=== PATIENT | female | born 1995 | race Caucasian/White ===

== ENCOUNTER 2017-02-04 11:37 | Emergency (ER) | payer BC ==
[2017-02-04 11:44] VITALS: O2SAT 98
[2017-02-04] MEDS ORDERED: NS 1,000 ML IV ONE (11:59)
--- NOTE | 2017-02-04 11:59 | EDPHY ---
H & P Time Seen by Provider: 02/04/17 11:47 HPI/ROS: CHIEF COMPLAINT: UTI symptoms HISTORY OF PRESENT ILLNESS: This is a 21-year-old female presenting to the emergency department complaining of painful urination with san[place] and C x2 days. Patient said she had an increase in lower abdominal pain with painful urination onset this morning, denies any nausea vomiting, or fever. Patient also reports that this is finals week for her decreasing water intake feels dehydrated and fatigue REVIEW OF SYSTEMS: Constitutional: No fever, no chills. Fatigue, decrease in fluid intake Eyes: No discharge. ENT: No sore throat. Cardiovascular: No chest pain, no palpitations. Respiratory: No cough, no shortness of breath. Gastrointestinal: Lower abdominal pain, no vomiting, no nausea Genitourinary: Painful urination, with frequency and urgency Musculoskeletal: No back pain. Skin: No rashes. Neurological: No headache. Past Medical/Surgical History: History of Crohn's disease Smoking Status: Never smoked Physical Exam: General Appearance: Alert and no distress. Eyes: Pupils equal and round no injection. Respiratory: Chest is nontender, lungs are clear to auscultation. Cardiac: regular rate and rhythm Gastrointestinal: Abdomen is soft, nondistended, suprapubic tenderness on palpation, no masses, bowel sounds normal. Musculoskeletal: Neck is supple and nontender. No CVA tenderness on palpation Extremities: full range of motion and are nontender. Skin: No rashes or lesions. Constitutional: Initial Vital Signs Temperature (C) 36.0 C 02/04/17 11:39 Heart Rate 61 02/04/17 11:39 Respiratory Rate 16 02/04/17 11:39 Blood Pressure 122/84 H 02/04/17 11:39 O2 Sat (%) 98 02/04/17 11:39 O2 Delivery Mode Room Air Allergies/Adverse Reactions: No Known Allergies Allergy (Verified 02/04/17 11:44) Home Medications: Medication Instructions Recorded Ortho Tri-Cyclen Lo Tablet 02/04/17 Sulfamethox/Tmp 800/160 mg 1 tab PO BID #14 tab 02/04/17 [Bactrim Ds] Medical Decision Making ED Course/Re-evaluation: Discussed the plan of care: IV fluids for dehydration, UA, urine culture, CBC, BMP Discussed urine results with patient, culture will be sent, placed on antibiotics. Discharge home---> stable, discussed discharge instructions with patient Differential Diagnosis: Other differential diagnosis considered but not limited to pyelonephritis, renal stone, and urosepsis - Data Points Laboratory Results: Laboratory Results 02/04/17 12:15 02/04/17 12:15 02/04/17 02/04/17 02/04/17 12:15 12:15 11:45 WBC 13.18 10^3/uL H 10^3/uL (3.80-9.50) RBC 4.26 10^6/uL 10^6/uL (4.18-5.33) Hgb 12.9 g/dL g/dL (12.6-16.3) Hct 38.3 % % (38.0-47.0) MCV 89.9 fL fL (81.5-99.8) MCH 30.3 pg pg (27.9-34.1) MCHC 33.7 g/dL g/dL (32.4-36.7) RDW 12.8 % % (11.5-15.2) Plt Count 248 10^3/uL 10^3/uL (150-400) Sodium 139 mEq/L mEq/L (134-144) Potassium 3.7 mEq/L mEq/L (3.5-5.2) Chloride 104 mEq/L mEq/L (97-110) Carbon Dioxide 26 mEq/l mEq/l (22-31) Anion Gap 9 mEq/L mEq/L (8-16) BUN 11 mg/dL mg/dL (7-23) Creatinine 0.7 mg/dL mg/dL (0.6-1.0) Estimated GFR > 60 Glucose 78 mg/dL mg/dL (70-100) Calcium 9.2 mg/dL mg/dL (8.5-10.4) Urine Color YELLOW Urine Appearance MODERATELY TURBID Urine pH 7.0 (5.0-7.5) Ur Specific [place] 1.021 (1.002-1.030) Urine Protein 2+ H (NEGATIVE) Urine Ketones NEGATIVE (NEGATIVE) Urine Blood 3+ H (NEGATIVE) Urine Nitrate NEGATIVE (NEGATIVE) Urine Bilirubin NEGATIVE (NEGATIVE) Urine Urobilinogen NEGATIVE EU EU (0.2-1.0) Ur Leukocyte Esterase 3+ H (NEGATIVE) Urine RBC 50-182 /hpf H /hpf (0-3) Urine WBC 50-182 /hpf H /hpf (0-3) Ur Epithelial Cells TRACE /lpf /lpf (NONE-1+) Urine Mucus 2+ /lpf H /lpf (NONE-1+) Urine Glucose NEGATIVE (NEGATIVE) Medications Given: Discontinued Medications Sodium Chloride (Ns) 1,000 mls @ 0 mls/hr IV ONCE ONE PRN Reason: Wide Open Stop: 02/04/17 12:00 Last Admin: 02/04/17 12:15 Dose: 1,000 mls Departure - Departure Disposition: Home, Routine, Self-Care Clinical Impression: Urinary tract infection Qualifiers: Urinary tract infection type: site unspecified Hematuria presence: without hematuria Qualified Code(s): N39.0 - Urinary tract infection, site not specified Condition: Good Instructions: Phenazopyridine (By mouth), Urinary Tract Infection in Women (ED) , Dysuria (ED) Additional Instructions: Discussed discharge instructions 1. Take all antibiotics as directed 2. You can also take [id number] azo for 1-2 days as needed to help with painful urination 3. Increase fluid intake, you can also drink cranberry juice 4. If any symptoms worsen: Fever chills back pain worsening UTI return to the ED [facility]: [facility] [Other] - As per Instructions Prescriptions: Sulfamethox/Tmp 800/160 mg [Bactrim Ds] 1 tab PO BID #14 tab
[2017-02-04 12:07] LABS: COLOR YELLOW; LEUKOCYTE ESTERASE,URINE 3+ (NEGATIVE); NITRITE,URINE NEGATIVE (NEGATIVE)
[2017-02-04 12:14] LABS: MUCUS 2+ /lpf (NONE-1+); RBC,URINE 50-182 /hpf (0-3); WBC,URINE 50-182 /hpf (0-3)
[2017-02-04 12:24] LABS: HEMATOCRIT 38.3 % (38.0-47.0); HEMOGLOBIN 12.9 g/dL (12.6-16.3); MEAN CELL HEMOGLOBIN 30.3 pg (27.9-34.1); MEAN CELL HEMOGLOBIN CONCENTR. 33.7 g/dL (32.4-36.7); MEAN CELL VOLUME 89.9 fL (81.5-99.8); RED BLOOD CELL COUNT 4.26 10^6/uL (4.18-5.33); RED CELL DISTRIBUTION WIDTH 12.8 % (11.5-15.2)
[2017-02-04 12:34] LABS: ANION GAP 9 mEq/L (8-16); CALCIUM 9.2 mg/dL (8.5-10.4); CARBON DIOXIDE 26 mEq/l (22-31); CHLORIDE 104 mEq/L (97-110); CREATININE 0.7 mg/dL (0.6-1.0); GLOMERULAR FILTRATION RATE > 60; GLUCOSE 78 mg/dL (70-100); POTASSIUM 3.7 mEq/L (3.5-5.2); SODIUM 139 mEq/L (134-144)
[2017-02-04 13:13] VITALS: BP 104/65; PULSE 58; RESP 20; TEMP 97.7
== END 2017-02-04 13:23 | disposition home or self-care (01) ==
DX: N39.0 Urinary tract infection, site not specified (principal); B96.20 Unspecified Escherichia coli [E. coli] as the cause of diseases classified elsewhere

== ENCOUNTER 2017-09-10 11:27 | Emergency (ER) | payer BC ==
[2017-09-10 12:32] LABS: % IMMATURE GRANULYOCYTES 0.2 % (0.0-1.1); ABSOLUTE IMMATURE GRANULOCYTES 0.02 10^3/uL (0.00-0.10); ADD DIFF? NO; ADD MORPH? NO; ADD SCAN? NO; ATYPICAL LYMPHOCYTE FLAG 60 (0-99); FRAGMENT RBC FLAG 0 (0-99); HEMATOCRIT 40.8 % (38.0-47.0); HEMOGLOBIN 13.9 g/dL (12.6-16.3); LEFT SHIFT FLG 20 (0-99); LIPEMIA HEMOLYSIS FLAG 90 (0-99); MEAN CELL HEMOGLOBIN 28.5 pg (27.9-34.1); MEAN CELL HEMOGLOBIN CONCENTR. 34.1 g/dL (32.4-36.7); MEAN CELL VOLUME 83.6 fL (81.5-99.8); MEAN PLATELET VOLUME 9.4 fL (8.7-11.7); PLATELET CLUMPS FLAG 0 (0-99); PLATELET COUNT 290 10^3/uL (150-400); RED BLOOD CELL COUNT 4.88 10^6/uL (4.18-5.33); RED CELL DISTRIBUTION WIDTH 15.4 % (11.5-15.2)
--- NOTE | 2017-09-10 12:35 | EDPHY ---
H & P Time Seen by Provider: 09/10/17 12:32 HPI/ROS: CHIEF COMPLAINT: Nausea vomiting and diarrhea HISTORY OF PRESENT ILLNESS: This 22-year-old woman has history of Crohn's disease and feels like she has had a flare since this past Wednesday approximately 5 days ago. She has been under a lot of additional stress testing for final exams and initially felt better on Wednesday or Wednesday. She started on oral Flagyl on Wednesday. She did have a glass of red wine on Wednesday 2 days ago and since then has felt a lot worse. Multiple episodes of nausea vomiting and bloody diarrhea. Associated with primarily left lower quadrant abdominal pain which does not radiate. Symptoms moderate to severe, worse with oral intake. Not associated with urinary or vaginal symptoms. REVIEW OF SYSTEMS: Eye: no change in vision ENT: no sore throat Cardiac: no chest pain or syncope Pulmonary: no cough or SOB Abdomen: HPI Musculoskeletal: no back pain Skin: no rash Neuro: no headache Constitutional: [place] fevers last night but no documented elevated temperature. : no urinary symptoms, last menstrual period 2 months ago A comprehensive 10 point review of systems is otherwise negative aside from elements mentioned in the history of present illness. PAST MEDICAL HISTORY: Includes Crohn's disease, previous ED visit dated 2015 when she was seen by myself personally reviewed. Social history: Nonsmoker, student General Appearance: Alert and conversant, cooperative. Eyes: No scleral icterus. ENT, Mouth: Dry mucous membranes. Respiratory: Normal respiratory effort, breath sounds equal, lungs are clear to auscultation. Cardiovascular: Regular rate and rhythm. Gastrointestinal: Abdomen is soft and non tender. Not distended, normal bowel sounds, no focal tenderness rebound or guarding. Neurological: Alert and oriented x3. Normally conversant. Face symmetric, normal movement and sensation in all extremities. Skin: Warm and dry, no rashes. Musculoskeletal: No peripheral edema and no joint swelling. Psychiatric: Not agitated. Emergency Department course/MDM: Patient is clinically mildly dehydrated as evidenced by heart rate of 97 and dry mucous membranes. However she does not look septic or toxic and has a benign abdominal exam without suggestion of surgical abdominal process. She tells me she feels this is just like a flare of her Crohn's disease which usually responds oral prednisone. IV normal saline 2 L, Zofran 4 mg IV, 80 mg IV Solu-Medrol. If she improves in the ED enough so she can take oral fluids without vomiting, I think it is reasonable to discharge her with Zofran ODT with which she has had good success before as well as a prednisone prescription for 1 week. Patient states that she thinks this is a good plan would like to try it. 1350: feels better, taking po. 1420: Urine positive for ketones, reviewed has some red blood cells and white blood cells but mucus present. At this point will send a culture but would not treat without urinary symptoms. Smoking Status: Never smoked Constitutional: Initial Vital Signs Temperature (C) 36.4 C 09/10/17 11:38 Heart Rate 97 09/10/17 11:38 Respiratory Rate 18 09/10/17 11:38 Blood Pressure 100/65 09/10/17 11:38 O2 Sat (%) 96 09/10/17 11:38 O2 Delivery Mode Room Air Allergies/Adverse Reactions: No Known Allergies Allergy (Verified 02/04/17 11:44) Home Medications: Medication Instructions Recorded Ortho Tri-Cyclen Lo Tablet 02/04/17 Ondansetron Odt [Zofran Odt] 4 mg PO Q4PRN #6 tab 09/10/17 predniSONE [prednisone 20mg (RX)] 40 mg PO DAILY 6 Days tab 09/10/17 Medical Decision Making Differential Diagnosis: Differential considered including but not limited to UTI, Crohn's flare, bowel obstruction, ectopic, appendicitis. - Data Points Laboratory Results: Laboratory Results 09/10/17 12:24 09/10/17 12:24 09/10/17 09/10/17 09/10/17 14:00 12:44 12:24 WBC RBC Hgb Hct MCV MCH MCHC RDW Plt Count MPV Neut % (Auto) Lymph % (Auto) [place] % (Auto) Eos % (Auto) Baso % (Auto) Nucleat RBC Rel Count Absolute Neuts (auto) Absolute Lymphs (auto) Absolute Monos (auto) Absolute Eos (auto) Absolute Basos (auto) Absolute Nucleated RBC Immature Gran % Immature Gran # Sodium 138 mEq/L mEq/L (134-144) Potassium 3.5 mEq/L mEq/L (3.5-5.2) Chloride 102 mEq/L mEq/L (97-110) Carbon Dioxide 24 mEq/l mEq/l (22-31) Anion Gap 12 mEq/L mEq/L (8-16) BUN 13 mg/dL mg/dL (7-23) Creatinine 0.8 mg/dL mg/dL (0.6-1.0) Estimated GFR > 60 Glucose 81 mg/dL mg/dL (70-100) Calcium 9.4 mg/dL mg/dL (8.5-10.4) Beta HCG, Qual NEGATIVE Urine Color YELLOW Urine Appearance HAZY Urine pH 5.0 (5.0-7.5) Ur Specific [place] 1.027 (1.002-1.030) Urine Protein 1+ H (NEGATIVE) Urine Ketones 2+ H (NEGATIVE) Urine Blood NEGATIVE (NEGATIVE) Urine Nitrate NEGATIVE (NEGATIVE) Urine Bilirubin NEGATIVE (NEGATIVE) Urine Urobilinogen NEGATIVE EU EU (0.2-1.0) Ur Leukocyte Esterase NEGATIVE (NEGATIVE) Urine RBC 15-25 /hpf H /hpf (0-3) Urine WBC 5-10 /hpf H /hpf (0-3) Ur Epithelial Cells 1+ /lpf /lpf (NONE-1+) Urine Mucus 4+ /lpf H /lpf (NONE-1+) Urine Glucose NEGATIVE (NEGATIVE) 09/10/17 12:24 WBC 9.11 10^3/uL 10^3/uL (3.80-9.50) RBC 4.88 10^6/uL 10^6/uL (4.18-5.33) Hgb 13.9 g/dL g/dL (12.6-16.3) Hct 40.8 % % (38.0-47.0) MCV 83.6 fL fL (81.5-99.8) MCH 28.5 pg pg (27.9-34.1) MCHC 34.1 g/dL g/dL (32.4-36.7) RDW 15.4 % H % (11.5-15.2) Plt Count 290 10^3/uL 10^3/uL (150-400) MPV 9.4 fL fL (8.7-11.7) Neut % (Auto) 76.2 % H % (39.3-74.2) Lymph % (Auto) 9.8 % L % (15.0-45.0) [place] % (Auto) 8.9 % % (4.5-13.0) Eos % (Auto) 4.5 % % (0.6-7.6) Baso % (Auto) 0.4 % % (0.3-1.7) Nucleat RBC Rel Count 0.0 % % (0.0-0.2) Absolute Neuts (auto) 6.94 10^3/uL H 10^3/uL (1.70-6.50) Absolute Lymphs (auto) 0.89 10^3/uL L 10^3/uL (1.00-3.00) Absolute Monos (auto) 0.81 10^3/uL H 10^3/uL (0.30-0.80) Absolute Eos (auto) 0.41 10^3/uL H 10^3/uL (0.03-0.40) Absolute Basos (auto) 0.04 10^3/uL 10^3/uL (0.02-0.10) Absolute Nucleated RBC 0.00 10^3/uL 10^3/uL (0-0.01) Immature Gran % 0.2 % % (0.0-1.1) Immature Gran # 0.02 10^3/uL 10^3/uL (0.00-0.10) Sodium Potassium Chloride Carbon Dioxide Anion Gap BUN Creatinine Estimated GFR Glucose Calcium Beta HCG, Qual Urine Color Urine Appearance Urine pH Ur Specific [place] Urine Protein Urine Ketones Urine Blood Urine Nitrate Urine Bilirubin Urine Urobilinogen Ur Leukocyte Esterase Urine RBC Urine WBC Ur Epithelial Cells Urine Mucus Urine Glucose Medications Given: Discontinued Medications Sodium Chloride (Ns) 1,000 mls @ 3,000 mls/hr IV ONCE ONE Stop: 09/10/17 12:45 Last Admin: 09/10/17 12:53 Dose: 1,000 mls Sodium Chloride (Ns) 1,000 mls @ 0 mls/hr IV EDNOW ONE; Wide Open PRN Reason: Protocol Stop: 09/10/17 12:45 Last Admin: 09/10/17 12:57 Dose: Not Given Sodium Chloride (Ns) 1,000 mls @ 0 mls/hr IV EDNOW ONE; Wide Open PRN Reason: Protocol Stop: 09/10/17 13:51 Last Admin: 09/10/17 14:09 Dose: Not Given Methylprednisolone Sodium Succinate (Solu-Medrol) 80 mg IVP EDNOW ONE Stop: 09/10/17 12:45 Last Admin: 09/10/17 12:55 Dose: 80 mg Ondansetron HCl (Zofran) 4 mg IVP EDNOW ONE Stop: 09/10/17 12:45 Last Admin: 09/10/17 12:53 Dose: 4 mg Departure - Departure Disposition: Home, Routine, Self-Care Clinical Impression: Crohns disease Qualifiers: Gastrointestinal tract location: unspecified location Digestive disease complication type: without complication Qualified Code(s): K50.90 - Crohn's disease, unspecified, without complications Condition: Good Instructions: Crohn Disease (ED) Referrals: Funmilayo Negrete MD [Medical Doctor] - As per Instructions Stand Alone Forms: School Excuse Prescriptions: Ondansetron Odt [Zofran Odt] 4 mg PO Q4PRN #6 tab predniSONE [prednisone 20mg (RX)] 40 mg PO DAILY 6 Days tab
[2017-09-10] MEDS ORDERED: methylPREDNISolone SOD SUCC 125 MG/2 ML VIAL IVP ONE (12:44)
[2017-09-10] MEDS ORDERED: ONDANSETRON 4 MG/2 ML VIAL IVP ONE (12:44)
[2017-09-10] MEDS ORDERED: NS 1,000 ML IV ONE ×2 (12:44→13:50)
[2017-09-10] MEDS: NS 1,000 ML IV ONE ×2 (12:46→12:53)
[2017-09-10 12:49] LABS: ANION GAP 12 mEq/L (8-16); CALCIUM 9.4 mg/dL (8.5-10.4); CARBON DIOXIDE 24 mEq/l (22-31); CHLORIDE 102 mEq/L (97-110); CREATININE 0.8 mg/dL (0.6-1.0); GLOMERULAR FILTRATION RATE > 60; GLUCOSE 81 mg/dL (70-100); POTASSIUM 3.5 mEq/L (3.5-5.2); SODIUM 138 mEq/L (134-144)
[2017-09-10 14:11] VITALS: BP 106/66; PULSE 77; RESP 16; TEMP 97.9; O2SAT 98
[2017-09-10 14:16] LABS: COLOR YELLOW; LEUKOCYTE ESTERASE,URINE NEGATIVE (NEGATIVE); NITRITE,URINE NEGATIVE (NEGATIVE)
[2017-09-10 14:24] LABS: MUCUS 4+ /lpf (NONE-1+); RBC,URINE 15-25 /hpf (0-3)
== END 2017-09-10 14:40 | disposition home or self-care (01) ==
DX: K50.90 Crohn's disease, unspecified, without complications (principal)
CPT/HCPCS: 96374; J2405; J2930